=== PATIENT | female | born 1955 | race Caucasian/White ===

== ENCOUNTER 2017-12-03 06:55 | Emergency (ER) | payer MEDICARE, OTHER ==
[~2017-12-03] VITALS: Ht 157.5 cm; Wt 39.9 kg
[2017-12-03 06:55] VITALS: BP 158/80
[~2017-12-03 06:55] MED LIST: LORA1TAB7 PO; PAX20 PO; TRIF10TA1 PO; TRIH2TAB21 PO
--- NOTE | 2017-12-03 06:55 | NUR ---
PT TRANSFERED TO BED 10 FROM [facility]. [facility]. PT HAS SOB AND DYSPNEA BUT A&OX4 AND STABLE.
--- NOTE | 2017-12-03 07:00 | NUR ---
62/F BIBA FROM [facility] FOR SOB/DYSPNEA AND "PULLED MUSCLE" ON L ARMPIT/L UPPER CHEST. PT STATES THAT "I JUST NEED MY PSYCH MEDS AND I'LL GO HOME." SPO2 87% ON ROOM AIR, SPO2 90% ON O2 2L NC, RR 22 EVEN AND UNLABORED. AOX4, AMBULATORY. LUNG SOUNDS CLEAR BL. HX COPD. PT PLACED ON LICENSED PSYCHIATRIC TECHNICIAN. ER MD MADE AWARE.
--- NOTE | 2017-12-03 07:20 | NUR ---
RECIEVED REPORT FROM WILLIAM UGALDE.
--- NOTE | 2017-12-03 07:30 | NUR ---
ROSALBA REQUEST BLACK COFFEE, OK PER ED MD. COFFEE TAKEN TO BEDSIDE BY NURSE.
[2017-12-03 08:50] VITALS: BP 158/80
== END 2017-12-03 07:30 | disposition home or self-care (01) ==
LOC: MED 06:55
DX: J44.1 Chronic obstructive pulmonary disease with (acute) exacerbation (principal); R03.0 Elevated blood-pressure reading, without diagnosis of hypertension; E11.9 Type 2 diabetes mellitus without complications; F17.200 Nicotine dependence, unspecified, uncomplicated; Z76.0 Encounter for issue of repeat prescription; Z79.899 Other long term (current) drug therapy
CPT/HCPCS: 71045; 81002; 99283; Q0092

== ENCOUNTER 2019-07-18 16:17 | Inpatient (IN) | payer MEDICARE, OTHER ==
[~2019-07-18] VITALS: Ht 154.9 cm; Wt 45.4 kg
[2019-07-18 16:18] VITALS: BP 108/84
--- NOTE | 2019-07-18 16:23 | NUR ---
BROUGHT IN BY EMS FROM [facility] C/O ASTHMA EXACERBATION AFTER NOT TAKING HER "LORAZEPAM" TODAY FULL CLEAR SPEECH WITH ACCESSORY MUSCLE USE NOTED, ADMITS SMOKE DAILY DENIES LEAVING HER HOUSE RECENTLY PATIENT STATES PAIN OF 0/10 AT THIS TIME; VSS; PATIENT POSITIONED FOR COMFORT; HOB ELEVATED; BEDRAILS UP X1; BED DOWN. ER MADE AWARE OF PT STATUS. PT'S OXYGEN SAT IS 98% ON NASAL CANNULA. Addendum: 07/18/19 at 1746 by MED[facility] SEVERE SOB, MOIST COUGH, WHEEZES NOTICE UPON FULL ASSESSMENT. LOW GRADE FEVER OF 99.9 TEMPORAL TEM, AND 98.4 ORAL TEM.
[2019-07-18] MEDS ORDERED: OLAN15TA1 PO (16:24)
[2019-07-18] MEDS ORDERED: ATI.5 PO (16:24)
[2019-07-18] MEDS ORDERED: PAX20 PO (16:24)
[2019-07-18] MEDS ORDERED: ALBUTEROL SULFATE/IPRATROPIU 3 ML SOL IH ONE ×2 (16:30→17:30)
[2019-07-18] MEDS ORDERED: LORazepam 1 MG TAB PO ONE (16:30)
--- NOTE | 2019-07-18 16:36 | NUR ---
Yudi tesfaye in ED - 07/18/19 at 1641 by GREGORIO RT IS AT BEDSIDE FOR BREATHING TX.
--- NOTE | 2019-07-18 16:39 | NUR ---
public address technician at bedside.
--- NOTE | 2019-07-18 16:39 | NUR ---
Breathing treatment administered by respiratory therapist at bedside.
--- NOTE | 2019-07-18 17:07 | NUR ---
INFLUZA SAMPLE OBTAINED AND SENT TO THE LAB.
[2019-07-18 17:10] LABS: BASOPHILS # (AUTO) 0.1 K/uL (0.00-0.22); BASOPHILS % (AUTO) 1.9 % (0.0-2.0); EOSINOPHILS # (AUTO) 0.1 K/uL (0-0.4); EOSINOPHILS % (AUTO) 1.2 % (0.0-4.0); HEMOGLOBIN 13.4 g/dL (12.0-16.0); LYMPHOCYTES # (AUTO) 1.3 K/uL (2.5-16.5); MEAN CORPUSCULAR HEMOGLOBIN 32 pg (27-31); MEAN CORPUSCULAR HGB CONC 34 g/dL (33-37); MEAN CORPUSCULAR VOLUME 96.6 fL (80-94); MONOCYTES # (AUTO) 0.8 K/uL (0.8-1.0); MONOCYTES % (AUTO) 12.5 % (1.7-9.3); NEUTROPHILS # (AUTO) 4.1 K/uL (1.8-7.7); NEUTROPHILS % (AUTO) 64.4 % (42.2-75.2); PLATELET COUNT (AUTO) 301 K/uL (140-450); RED BLOOD CELL COUNT(AUTO) 4.14 MIL/uL (4.20-5.40); RED CELL DISTRIBUTION WIDTH 14.1 % (11.6-13.7); WHITE BLOOD COUNT (AUTO) 6.4 K/uL (4.8-10.8)
[2019-07-18] MEDS ORDERED: AZITHROMYCIN 250 MG TAB PO ONE (17:15)
[2019-07-18] MEDS ORDERED: predniSONE 20 MG TAB PO ONE (17:15)
--- NOTE | 2019-07-18 17:37 | NUR ---
RT AT BEDSIDE FOR BREATHING TX.
--- NOTE | 2019-07-18 17:37 | NUR ---
Secondary breathing treatment administered at bedside by respiratory therapist.
[2019-07-18 17:38] LABS: ANION GAP 8.7 (8-16); CARBON DIOXIDE 33.3 mmol/L (21-32); CREATININE 0.7 mg/dL (0.6-1.3)
[2019-07-18] MEDS ORDERED: NACL 0.9% 1,000 ML IV SCH (18:27)
[2019-07-18] MEDS ORDERED: ACETAMINOPHEN 325 MG TAB PO PRN (18:30)
[2019-07-18] MEDS ORDERED: ONDANSETRON 4 MG/2 ML VIAL IVP PRN (18:30)
[2019-07-18] MEDS ORDERED: ALBUTEROL HFA MDI 90 MCG/ACTUATION 8 GM INH PRN (18:40)
[2019-07-18] MEDS ORDERED: methylPREDNISolone SS 125 MG/2 ML VIAL IVP ONE (18:40)
--- NOTE | 2019-07-18 18:45 | NUR ---
NOVEL CORONAVIRUS SWAP OBTAINED AND SENT TO THE LAB.
[2019-07-18] MEDS ORDERED: DEXTROSE 50% 50 ML SYR IVP PRN (18:50)
[2019-07-18] MEDS ORDERED: INSULIN LISPRO SLIDING SCALE 100 UNITS/ML VIAL SUBQ PRN (18:50)
[2019-07-18 19:00] VITALS: BP 100/61
--- NOTE | 2019-07-18 19:00 | NUR ---
Patient will be admitted to care of COPD exacerbation. Admited to ICU. Will go to room 7. Belongings list completed. Report to WILLIAM Schaefer.
[2019-07-18 19:45] LABS: FREE T4 (FREE THYROXINE) 0.88 ng/dL (0.76-1.46); MAGNESIUM 2.2 mg/dL (1.8-2.4); PHOSPHORUS 3.6 mg/dL (2.5-4.9); THYROID STIMULATING HORMONE 1.98 uIU/mL (0.34-3.74)
[2019-07-18 19:46] LABS: PROTHROMBIN TIME 9.7 secs (10.8-13.4)
--- NOTE | 2019-07-18 20:10 | NUR ---
CAME IN TO ICU FOR PT'S CONTINUITY OF CARE. PT IS PUI FOR COVID-19, IS IN ISOLATION WITH NEGATIVE PRESSURE AIR. WAS INFORMED THAT PT DECIDED TO GO AMA, EXPLAINED TO PT THE RISKS, PT VERBALIZED UNDERSTANDING AND SIGNED AMA PAPER. PT IS AAOX4, ALREADY WEARING PERSONAL CLOTHES, NO SIGNS OF RESPIRATORY DISTRESS OR DISCOMFORT. PT WAS CALM WHILE OBTAINING SIGNATURE FOR AMA. PT TEACHING GIVEN REGARDING CONDITION, REITERATED POSSIBLE RISKS, PT VERBALIZED UNDERSTANDING. ICU LAN MANAGER CONTACTING INTERMEDIATE TO INFORM PT'S AMA DECISION AND FOR TRANSPORTATION.
--- NOTE | 2019-07-18 20:20 | NUR ---
PT WAS OPENING DOOR TO HER ROOM TO INQUIRE ABOUT HER TRANSPORTATION. REDIRECTED PT AND INFORMED ABOUT THE HOSPITAL PROTOCOL. PT CONTINUED TO OPEN THE DOOR SEVERAL TIMES. PT SHOWED INCREASED AGITATION, THREATENED TO CALL THE POLICE, STATED THAT SHE WILL "JUST WALK HOME". NURSES REDIRECTED PT, PT OPENED THE DOOR, REFUSED TO TALK TO ANYBODY, ARMS FLAILING TO AVOID BEING TOUCHED, WALKED OUTSIDE ICU AND EXITED TOWARDS AN EMERGENCY FIRE EXIT DOOR. CHEMO DAVIDSON WAS CALLED AND SEVERAL NURSES WITNESSED PT EXIT THE DOOR. PRODUCTION OR PLANT ENGINEER AND SECURITY PRESENT, ICU RUG MEASURER NOTIFIED HALF-WAY AND SISTER. SISTER STATED SHE CAN'T SENIOR CASE MANAGER PT. PT WAS WITNESSED LEAVING HOSPITAL PREMISES.
[2019-07-18] MEDS ORDERED: metroNIDAZOLE 500 MG/NS PREMIX 100 ML IV SCH (21:00)
[2019-07-18] MEDS ORDERED: BLOOD GLUCOSE MONITORING 1 DEV DEV FS SCH (21:00)
[2019-07-18] MEDS ORDERED: DOCUSATE SODIUM 100 MG GELCAP PO SCH (21:00)
[2019-07-19] MEDS ORDERED: methylPREDNISolone SS 40 MG/ML VIAL IVP SCH (05:00)
[2019-07-19] MEDS ORDERED: ALBUTEROL HFA MDI 90 MCG/ACTUATION 8 GM INH SCH (06:00)
[2019-07-20] MEDS ORDERED: methylPREDNISolone SS 40 MG/ML VIAL IVP SCH (05:00)
[2019-07-21] MEDS ORDERED: methylPREDNISolone SS 40 MG/ML VIAL IVP SCH (09:00)
== END 2019-07-18 20:20 | disposition left against medical advice (07) | DRG 202 ==
LOC: MED 16:17 → MIC 18:36 → EEVIPCON 18:36 → MIC 19:00
PROVIDERS: ADMIT General Practice; ATTEND General Practice
DX: J45.901 Unspecified asthma with (acute) exacerbation (principal); J44.1 Chronic obstructive pulmonary disease with (acute) exacerbation; F17.210 Nicotine dependence, cigarettes, uncomplicated; E11.9 Type 2 diabetes mellitus without complications; F20.9 Schizophrenia, unspecified; F41.9 Anxiety disorder, unspecified; Z90.710 Acquired absence of both cervix and uterus; G20 Parkinson's disease; F02.80 Dementia in other diseases classified elsewhere, unspecified severity, without behavioral disturbance, psychotic disturbance, mood disturbance, and anxiety; Z53.29 Procedure and treatment not carried out because of patient's decision for other reasons; Z88.8 Allergy status to other drugs, medicaments and biological substances; Z79.899 Other long term (current) drug therapy; Z82.49 Family history of ischemic heart disease and other diseases of the circulatory system; Z80.9 Family history of malignant neoplasm, unspecified; Z20.828 Contact with and (suspected) exposure to other viral communicable diseases
CPT/HCPCS: 36415; 71045; 80048; 82140; 82150; 83036; 83605; 83690; 83735; 83880; 84100; 84439; 84443; 84484; 85025; 85610; 85730; 87804; 93005; 94640; 99285; J0696; J7060; J7512; Q0092; U0002

== ENCOUNTER 2020-11-17 00:57 | Emergency (ER) | payer MEDICARE, OTHER ==
[~2020-11-17] VITALS: Ht 157.5 cm; Wt 40.8 kg
[2020-11-17 00:57] VITALS: BP 96/67
[~2020-11-17 00:57] MED LIST changes: +ATI.5 PO; +OLAN15TA1 PO
--- NOTE | 2020-11-17 00:57 | NUR ---
PT [facility]. TAKEN TO BED 9
--- NOTE | 2020-11-17 01:01 | NUR ---
Dr. Carrasco examining patient.
[2020-11-17] MEDS ORDERED: cefTRIAXone 1,000 MG in DEXT 5% MINI-BAG PLUS 50 ML IV ONE (01:05)
--- NOTE | 2020-11-17 01:15 | NUR ---
COVERING PRIMARY RN FOR LUNCH RELIEF. SEE COMPLETE ASSESSMENT. PT ATTACHED TO STORAGE WORKER.
--- NOTE | 2020-11-17 01:20 | NUR ---
RAD AT BEDSIDE
[2020-11-17 01:29] LABS: BASOPHILS # (AUTO) 0.1 K/uL (0.00-0.22); EOSINOPHILS # (AUTO) 0.2 K/uL (0-0.4); EOSINOPHILS % (AUTO) 3.8 % (0.0-4.0); HEMOGLOBIN 15.8 g/dL (12.0-16.0); LYMPHOCYTES # (AUTO) 1.6 K/uL (2.5-16.5); MEAN CORPUSCULAR HEMOGLOBIN 33 pg (27-31); MEAN CORPUSCULAR HGB CONC 34 g/dL (33-37); MEAN CORPUSCULAR VOLUME 96.7 fL (80-94); MONOCYTES # (AUTO) 0.6 K/uL (0.8-1.0); MONOCYTES % (AUTO) 11.7 % (1.7-9.3); NEUTROPHILS # (AUTO) 2.8 K/uL (1.8-7.7); NEUTROPHILS % (AUTO) 53.5 % (42.2-75.2); PLATELET COUNT (AUTO) 268 K/uL (140-450); RED BLOOD CELL COUNT(AUTO) 4.76 MIL/uL (4.20-5.40); RED CELL DISTRIBUTION WIDTH 14.9 % (11.6-13.7); WHITE BLOOD COUNT (AUTO) 5.3 K/uL (4.8-10.8)
[2020-11-17] MEDS ORDERED: cefTRIAXone 1,000 MG VIAL ONE (01:40)
[2020-11-17] MEDS ORDERED: OLAN15TA1 PO (01:46)
[2020-11-17] MEDS ORDERED: ATI.5 PO (01:46)
[2020-11-17] MEDS ORDERED: DOCU-299 PO (01:46)
[2020-11-17] MEDS ORDERED: PARO30TA PO (01:46)
[2020-11-17 01:52] LABS: ALBUMIN 3.6 g/dL (3.4-5.0); ANION GAP 6.6 (8-16); CARBON DIOXIDE 32.6 mmol/L (21-32); CREATININE 0.6 mg/dL (0.6-1.3); POTASSIUM 4.2 mmol/L (3.5-5.1); TOTAL BILIRUBIN 0.5 mg/dL (0.0-1.0)
--- NOTE | 2020-11-17 01:59 | NUR ---
Dr. Carrasco examining patient.
[2020-11-17] MEDS ORDERED: methylPREDNISolone SS 125 MG/2 ML VIAL IVP ONE (02:05)
--- NOTE | 2020-11-17 02:57 | NUR ---
Patient appears to be resting comfortably in bed. Vital Signs within normal limits. Respirations even and unlabored. PT DENIES PAIN OR DISCOMFORT AT THIS TIME.
--- NOTE | 2020-11-17 04:48 | NUR ---
Patient appears to be resting comfortably in bed. Vital Signs within normal limits. Respirations even and unlabored. NO NOTED SIGNS OF DISTRESS OR DISCOMFORT.
--- NOTE | 2020-11-17 06:30 | NUR ---
PER ERMD, OK FOR PT TO TAKE MORNING MEDICATIONS AT BEDSIDE RX.
--- NOTE | 2020-11-17 06:43 | NUR ---
PT NOTED WITH 02 SAT 86%. PT NOTED WEARING MASK ON HEAD. REORIENTED PT TO KEEP MASK IN PLACE. PT VERBALIZED UNDERSTANDING.
--- NOTE | 2020-11-17 07:13 | NUR ---
REPORT GIVEN TO WILLIAM HOOD FOR CONTINUITY OF CARE.
--- NOTE | 2020-11-17 07:20 | NUR ---
Patient to be transferred to [facility]. Is being transferred due to INSURANCE. Receiving facility has accepting physician and available space. ER physician has signed transfer form. Patient or responsible alliance party has agreed to transfer and signed form. Patient belongings inventoried and will be sent with patient. Copy of nursing notes, lab reports, EKG, Physicians Orders and X-rays to be sent with patient. Report called to WILLIAM PIERRE at receiving facility. ALS TRANSPORT has been called for transfer. ETA is [id number].
[2020-11-17 08:00] VITALS: BP 99/52
--- NOTE | 2020-11-17 08:00 | NUR ---
[facility] bedside for patient transfer to [facility].
== END 2020-11-17 08:00 | disposition short-term general hospital (02) ==
LOC: MED 00:57
DX: R09.02 Hypoxemia (principal); Z20.822 Contact with and (suspected) exposure to COVID-19; J44.1 Chronic obstructive pulmonary disease with (acute) exacerbation; E11.9 Type 2 diabetes mellitus without complications; F03.90 Unspecified dementia, unspecified severity, without behavioral disturbance, psychotic disturbance, mood disturbance, and anxiety; F32.9 Major depressive disorder, single episode, unspecified; F20.9 Schizophrenia, unspecified; F17.200 Nicotine dependence, unspecified, uncomplicated; Z88.5 Allergy status to narcotic agent; Z88.8 Allergy status to other drugs, medicaments and biological substances; Z98.890 Other specified postprocedural states; Z90.710 Acquired absence of both cervix and uterus; Z79.899 Other long term (current) drug therapy
CPT/HCPCS: 36415; 71045; 80053; 83605; 83880; 84484; 85025; 87040; 87426; 93005; 96361; 96374; 99285; J0696; J2930